=== PATIENT | male | born 1945 | race Caucasian/White ===

== ENCOUNTER 2019-04-28 15:48 | Inpatient (IN) | payer OTHER ==
[~2019-04-28] VITALS: Ht 170.2 cm; Wt 99.6 kg
[~2019-04-28 15:48] MED LIST: ASA81BEC PO; CARVEDILOL3.125 MG PO; CHLORTHALIDONE25 MG PO; FLOMAX0.4 MG PO; INDOMETHACIN 5050 M1 PO; LIPITOR 20 MG T20 M1 PO; LISINOPRIL10 MG PO; SUPER THERAVIT1 EACH PO
[2019-04-28 17:32] VITALS: BP 151/77
[2019-04-28 19:30] VITALS: BP 104/80
[2019-04-29 07:00] VITALS: BP 112/71
[2019-04-29 15:55] LABS: FOLIC ACID 53.9 ng/mL (8.6-58.9)
[2019-04-29 19:39] VITALS: BP 113/66
[2019-04-30 06:23] LABS: ABSOLUTE NEUTROPHILS 4.9 thou/uL (1.4-8.2); BASOPHILS 0.8 % (0.0-2.0); EOSINOPHILS 1.8 % (0.0-3.0); HEMATOCRIT 40.8 % (42.0-52.0); HEMOGLOBIN 13.1 gm/dL (14.0-18.0); LYMPHOCYTES 20.4 % (24.0-44.0); MCH 27.5 pg (26.0-34.0); MCHC 32.2 g/dL (28.0-37.0); MCV 85.3 fL (80.0-100.0); MONOCYTES 7.7 % (1.0-8.0); PLATELET COUNT 205 thou/uL (150-400); POLYS 69.3 % (36.0-66.0); RBC 4.77 mil/uL (4.50-6.00); RDW 15.4 % (10.5-14.5)
[2019-04-30 06:35] LABS: CALCIUM 9.8 mg/dL (8.5-10.1); CREATININE 1.4 mg/dL (0.7-1.3); POTASSIUM 4.1 mmol/L (3.5-5.1)
[2019-04-30 06:40] LABS: MAGNESIUM 1.9 mg/dL (1.8-2.4); PHOSPHORUS 4.3 mg/dL (2.5-4.9); URIC ACID* 9.8 mg/dL (2.6-7.2)
[2019-04-30 09:00] VITALS: BP 108/55
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
[2019-04-30 20:13] VITALS: BP 123/66
[2019-04-30 23:30] VITALS: BP 123/66
[2019-05-01 05:49] LABS: ABSOLUTE NEUTROPHILS 4.2 thou/uL (1.4-8.2); BASOPHILS 0.7 % (0.0-2.0); EOSINOPHILS 1.9 % (0.0-3.0); HEMATOCRIT 37.8 % (42.0-52.0); HEMOGLOBIN 12.2 gm/dL (14.0-18.0); LYMPHOCYTES 22.7 % (24.0-44.0); MCH 27.6 pg (26.0-34.0); MCHC 32.3 g/dL (28.0-37.0); MCV 85.6 fL (80.0-100.0); MONOCYTES 9.1 % (1.0-8.0); PLATELET COUNT 180 thou/uL (150-400); POLYS 65.6 % (36.0-66.0); RBC 4.42 mil/uL (4.50-6.00); RDW 15.4 % (10.5-14.5); WBC 6.4 thou/uL (4.0-11.0)
[2019-05-01 07:30] VITALS: BP 119/71
[2019-05-01 08:07] LABS: CALCIUM 9.6 mg/dL (8.5-10.1); CREATININE 1.3 mg/dL (0.7-1.3); POTASSIUM 4.3 mmol/L (3.5-5.1)
[2019-05-01 09:11] VITALS: BP 119/71
[2019-05-01 19:45] VITALS: BP 134/62
[2019-05-01 20:00] VITALS: BP 134/62
[2019-05-02 08:48] VITALS: BP 150/77
[2019-05-02] MEDS ORDERED: ALLOPURINOL 10100 M3 PO (12:39)
[2019-05-02] MEDS ORDERED: MIRALAX17 GM PO (12:42)
[2019-05-02] MEDS ORDERED: RISPERDAL 1 MG T1 MG PO (12:42)
[2019-05-02 13:05] VITALS: BP 150/77
[2019-05-02 13:12] VITALS: BP 150/77
[2019-05-02 13:38] VITALS: BP 150/77
[2019-05-02 22:10] LABS: SYPHILIS AB Non Reactive (Non Reactive)
--- NOTE | 2019-05-04 21:25 | D ---
[facility] [place] [address] DISCHARGE SUMMARY Name: YAYA TORO Room #: 523A-A [facility] IN ..#: [id number] Admission: 04/28/19 Attend Phys: Geovanny Moy DO Discharge: 05/02/19 Date of : 47 Report #: [id number] THIS REPORT FOR: //name// CC: Geovanny Moy [facility] DATE OF SERVICE: 05/02/2019 INPATIENT PSYCHIATRIC DISCHARGE SUMMARY ATTENDING PHYSICIAN: Geovanny Moy DO TANK TERMINAL GAUGER: Anastasia Strange MD DISCHARGE DIAGNOSIS: Unspecified psychosis, resolved. Other diagnoses include mild neurocognitive disorder. 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 DISCHARGE PLAN: Discharging to his home. He lives with his . Regular diet. Activity level as tolerated. Advised against smoking or alcohol. Patient and family wish to schedule their own psychiatrist appointment. A 30 day rx will be provided for risperidone. LABORATORY DATA: This admission, of note, hematology showed H and H of 22 and 7.8, on 05/01/2019, white count 6.4, platelet count 180. Chemistries showed sodium 141, potassium 4.3, chloride 106, bicarbonate 24, anion gap 11, BUN 32, creatinine 1.3, estimated GFR 54, glucose 105, calcium 9.6. Unfortunately, the vitamin D level still pending. Additional laboratories from 04/30/2019, CK 81, magnesium 1.9, phosphorus 4.3, uric acid 9.8, which was elevated. Serology for syphilis is negative. The patient had a number of imaging studies completed this admission, including a head CT and an MRI of the brain. The CT was read as negative, but showed an asymmetry. I was uncomfortable given that this was new-onset hallucinations. MRI of the brain with and without gadolinium contrast was done. Findings include no acute abnormalities, age-related findings as described including mild cerebral and cerebellar volume loss, mild chronic central white matter disease, likely microvascular ischemia in nature. DISCHARGE MEDICATIONS: As follows: Risperidone 1 mg twice per day, the patient is given 30-day prescription; polyethylene glycol 17 grams p.o. daily for motility; risperidone for psychosis; allopurinol 100 mg p.o. daily, Rx #30, for gout; Coreg 3.125 mg p.o. b.i.d. for hypertension; lisinopril 10 mg p.o. daily [address] [address] DISCHARGE SUMMARY Name: YAYA TORO Room #: 523A-A [facility]#: [id number] Admission: 04/28/19 Attend Phys: Geovanny Moy DO Discharge: 05/02/19 Date of : 47 Report #: [id number] for hypertension, atorvastatin 20 mg p.o. daily for hyperlipidemia. I have ordered vitamin 1 tab p.o. daily and tamsulosin 0.4 mg p.o. daily for BPH. REASON FOR ADMISSION: Back on 04/28/2019 is as follows: The patient is a 74-year-old male who lives with , had a 3-4 day history of visual hallucinations, seeing others that cannot be seen by others, including his , also recent cognitive symptoms over the last week. SLUMS score of 18/30. HOSPITAL COURSE: The patient was admitted to Geriatric Psychiatry Unit. I have asked him to be started on risperidone dose of 1.5 mg twice per day. There was some possible increase in slurred speech from the risperidone, so he is back down to 1 mg twice per day at discharge. The family has been interested in outpatient Neurology consultation, so I have given him a script for that to facilitate the appointment. Given the patient's mild cognitive impairment, he may need ongoing psychiatric followup for that and new-onset hallucinations, family was counseled this is a possible sentinel event indicating a neurodegenerative disorder, but time and progress will be the main determinant to that. PHYSICAL EXAMINATION: VITAL SIGNS: On the day of discharge, temperature 36.6, pulse 87, respirations 20, BP 158/77. MUSCULOSKELETAL: Slow gait. Normal station. MENTAL STATUS EXAMINATION: This is a well-developed, bit disheveled male, obese, appearing his stated age. Attention limited. Concentration fair. Speech slow, normal volume. Thought process is linear and goal directed. Thought content variable, focused mostly. No agitation or psychomotor retardation. Denied SI or HI. Denied hopelessness, helplessness. Memory not formally tested today at discharge. Insight fair. Judgment fair. Fund of knowledge at least average. PROGNOSIS: For this patient is fair to guarded depending on his compliance with psychiatric and medical followup as well as if he converts from mild neurocognitive disorder to a major neurocognitive disorder. I will keep the patient updated if he has a vitamin D deficiency, with the labs still pending. <ELECTRONICALLY SIGNED> By: Geovanny Moy DO 05/04/195 [id number] Geovanny Moy DO /nt
== END 2019-05-02 15:20 | disposition home or self-care (01) | DRG 885 ==
LOC: SBH
PROVIDERS: Internal Medicine; ADMIT Psychiatry & Neurology Psychiatry
DX: F29 Unspecified psychosis not due to a substance or known physiological condition (principal); N18.3 Chronic kidney disease, stage 3 (moderate); G31.84 Mild cognitive impairment of uncertain or unknown etiology; I25.10 Atherosclerotic heart disease of native coronary artery without angina pectoris; I12.9 Hypertensive chronic kidney disease with stage 1 through stage 4 chronic kidney disease, or unspecified chronic kidney disease; E78.5 Hyperlipidemia, unspecified; E66.9 Obesity, unspecified; Z68.34 Body mass index [BMI] 34.0-34.9, adult; M10.9 Gout, unspecified; N40.0 Benign prostatic hyperplasia without lower urinary tract symptoms; D50.9 Iron deficiency anemia, unspecified; Z98.52 Vasectomy status; Z95.5 Presence of coronary angioplasty implant and graft; I25.2 Old myocardial infarction; Z87.891 Personal history of nicotine dependence
CPT/HCPCS: 10880